=== PATIENT | female | born 1965 | race Caucasian/White ===

== ENCOUNTER → 2018-03-27 | Outpatient (CLI) | payer OTHER ==
[2018-03-27 07:36] LABS: HCT 44.5 % (34.0-46.0); HGB 14.6 gm/dL (11.4-16.0); MCHC 32.9 g/dL (31.0-37.0); MCV 97.2 fL (80.0-100.0); Mean Platelet Volume 6.9; Platelet Count 276 k/uL (150-450); RBC 4.57 m/uL (3.80-5.40); RDW 12.9 % (11.5-15.5); WBC 9.5 k/uL (3.8-10.6)
[2018-03-27 08:05] LABS: T4, Free (Free Thyroxine) 1.01 ng/dL (0.78-2.19)
--- NOTE | 2018-03-27 08:49 | BD ---
EXAMINATION TYPE: Axial Bone Density DATE OF EXAM: 03/27/2018 COMPARISON: NONE CLINICAL HISTORY: 53 YR OLD FEMALE....ICD10 CODE: Z13.820 BONE DENSITY SCREEN Height: 66.3 Weight: 124 FRAX RISK QUESTIONS: Current Tobacco Use: YES RISK FACTORS HISTORY OF: Active: YES Postmenopausal woman: YES AT AGE 50 MEDICATIONS: Additional Medications: NOTHING TO NOTE Additional History: NOTHING TO NOTE EXAM MEASUREMENTS: Bone mineral densitometry was performed using the [employer] System. Bone mineral density as measured about the Lumbar spine is: ----- L1-L4(G/cm2): 1.061 T Score Values are as follows: ----- L1: -1.1 ----- L2: -1.2 ----- L3: -1.3 ----- L4: -0.6 ----- L1-L4: -1.0 Bone mineral density FIRST BONE DENSITY TEST....BASELINE STUDY Bone mineral density about the R hip (g/cm2): 0.861 Bone mineral density about the L hip (g/cm2): 0.865 T Score values are as follows: -----R Neck: -2.0 -----L Neck: -2.0 -----R Total: -1.2 -----L Total: -1.1 Bone mineral density BASELINE STUDY FRAX%s: THERE IS A 7.3% CHANCE FOR A MAJOR OSTEOPOROTIC FX AND A 1.7% FOR HIP ......PROBABILITY OF FX IN 10 YRS TIME IMPRESSION: Osteopenia about the lumbar spine and bilateral femora. NOTE: T-SCORE=SD OF THE YOUNG ADULT MEAN.
[2018-03-27 12:29] LABS: Hemoglobin A1C 5.5 % (4.0-6.0)
--- NOTE | 2018-03-28 14:37 | MM ---
Reason for exam: screening (asymptomatic). Last mammogram was performed 9 years and 4 months ago. History: Patient is postmenopausal. Family history of breast cancer in aunt. Physical Findings: A clinical breast exam by your physician is recommended on an annual basis and results should be correlated with mammographic findings. MG 3D Screening Mammo W/Cad Bilateral CC, MLO, and XCCL view(s) were taken. Prior study comparison: November 12, 2008, bilateral digital screening mammogram. October 02, 2007, bilateral digital screening mammogram. The breast tissue is heterogeneously dense. This may lower the sensitivity of mammography. There is no discrete abnormality. ASSESSMENT: Negative, BI-RAD 1 RECOMMENDATION: Routine screening mammogram of both breasts in 1 year.
== END | disposition home or self-care (01) ==
LOC: RADMAMWWP 06:36
PROVIDERS: ATTEND Obstetrics & Gynecology
DX: Z12.31 Encounter for screening mammogram for malignant neoplasm of breast (principal); M85.851 Other specified disorders of bone density and structure, right thigh; M85.852 Other specified disorders of bone density and structure, left thigh; M85.88 Other specified disorders of bone density and structure, other site; Z13.220 Encounter for screening for lipoid disorders; Z13.1 Encounter for screening for diabetes mellitus
CPT/HCPCS: 77063; 77067; 77080; 80061; 82947; 83036; 84439; 84443; 84479; 85027

== ENCOUNTER → 2019-03-30 | Outpatient (CLI) | payer OTHER ==
--- NOTE | 2019-03-30 10:43 | MM ---
Reason for exam: screening (asymptomatic). Last mammogram was performed 1 year ago. History: Patient is postmenopausal. Family history of breast cancer in aunt. Physical Findings: A clinical breast exam by your physician is recommended on an annual basis and results should be correlated with mammographic findings. MG 3D Screening Mammo W/Cad Bilateral CC and MLO view(s) were taken. XCCL view(s) were taken of the left breast. Prior study comparison: March 27, 2018, bilateral MG 3d screening mammo w/cad. November 12, 2008, bilateral digital screening mammogram. The breast tissue is heterogeneously dense. This may lower the sensitivity of mammography. No suspicious abnormality. No significant changes when compared with prior studies. ASSESSMENT: Negative, BI-RAD 1 RECOMMENDATION: Routine screening mammogram of both breasts in 1 year.
== END | disposition home or self-care (01) ==
LOC: RADMAMWWP 07:26
PROVIDERS: ATTEND Obstetrics & Gynecology
DX: Z12.31 Encounter for screening mammogram for malignant neoplasm of breast (principal); Z80.3 Family history of malignant neoplasm of breast
CPT/HCPCS: 77063; 77067

== ENCOUNTER → 2019-09-17 | Outpatient (CLI) | payer OTHER ==
--- NOTE | 2019-09-18 11:00 | ECHOF ---
Referral Reason:R01.1 Cardiac Murmur MEASUREMENTS -------- HEIGHT: 170.2 cm WEIGHT: 61.7 kg BP: RVIDd: 2.5 cm (< 3.3) IVSd: 0.9 cm (0.6 - 1.1) LVIDd: 3.2 cm (3.9 - 5.3) LVPWd: 1.1 cm (0.6 - 1.1) IVSs: 1.7 cm LVIDs: 1.6 cm LVPWs: 1.8 cm LAESV Index (A-L): 24.08 ml/m Ao Diam: 2.7 cm (2.0 - 3.7) AV Cusp: 1.5 cm (1.5 - 2.6) LA Diam: 3.2 cm (2.7 - 3.8) MV EXCURSION: 14.631 mm (> 18.000) MV EF SLOPE: 128 mm/s (70 - 150) EPSS: 0.4 cm MV E Dedrick: 0.84 m/s MV DecT: 187 ms MV A Dedrick: 1.08 m/s MV E/A Ratio: 0.78 AV maxP.45 mmHg AV meanP.91 mmHg AR PHT: 536 ms RAP: 5.00 mmHg RVSP: 40.22 mmHg FINDINGS -------- Sinus rhythm. This was a technically good study. The left ventricular size is normal. Left ventricular wall thickness is normal. Overall left vent ricular systolic function is normal with, an EF between 55 - 60 %. Sigmoid shaped septum with focal hypertrophy of the basal septum. The remaining wall thickness is normal. The right ventricle is normal in size. The left atrial size is normal. Normal LA size by volume 22+/-6 ml/m2. The right atrial size is normal. The aortic valve is trileaflet and appears structurally normal. There is mild aortic regurgitation. Peak/mean gradient across the Aortic Valve is 37.45mmHg / 20.91mmHg. There is a gradient on the Ao rtic valve opening but valve is opening normally. The mitral valve is normal. Mild mitral regurgitation is present. The tricuspid valve appears structurally normal. Mild tricuspid regurgitation present. There is m ild pulmonary hypertension. The right ventricular systolic pressure, as measured by Doppler, is 40. 22mmHg. There is no pulmonic regurgitation present. The aortic root size is normal. Normal inferior vena cava with normal inspiratory collapse consistent with estimated right atrial pre ssure of 5 mmHg. There is no pericardial effusion. CONCLUSIONS -------- 1. Sinus rhythm. 2. This was a technically good study. 3. The left ventricular size is normal. 4. Left ventricular wall thickness is normal. 5. Overall left ventricular systolic function is normal with, an EF between 55 - 60 %. 6. Sigmoid shaped septum with focal hypertrophy of the basal septum. The remaining wall thickness is normal. 7. The right ventricle is normal in size. 8. The left atrial size is normal. 9. Normal LA size by volume 22+/-6 ml/m2. 10. The right atrial size is normal. 11. There is mild aortic regurgitation. There is a gradient on the Aortic valve opening but valve is opening normally. 12. Peak/mean gradient across the Aortic Valve is 37.45mmHg / 20.91mmHg. 13. The mitral valve is normal. 14. Mild mitral regurgitation is present. 15. The tricuspid valve appears structurally normal. 16. Mild tricuspid regurgitation present. 17. There is mild pulmonary hypertension. 18. The right ventricular systolic pressure, as measured by Doppler, is 40.22mmHg. 19. There is no pulmonic regurgitation present. 20. The aortic root size is normal. 21. Normal inferior vena cava with normal inspiratory collapse consistent with estimated right atrial pressure of 5 mmHg. 22. There is no pericardial effusion. BULB GRADER: Laura Montes CAMRYN
== END | disposition home or self-care (01) ==
LOC: RADECHMAIN 11:57
PROVIDERS: ATTEND Family Medicine
DX: I08.3 Combined rheumatic disorders of mitral, aortic and tricuspid valves (principal); I27.20 Pulmonary hypertension, unspecified
CPT/HCPCS: 93306

== ENCOUNTER → 2022-06-14 | Outpatient (CLI) | payer OTHER ==
--- NOTE | 2022-06-14 08:31 | MM ---
Reason for Exam: Screening (asymptomatic). Last mammogram was performed 3 year(s) and 3 month(s) ago. Patient History: Menarche at age 13. First Full-Term at age 22. Postmenopausal. Maternal aunt had breast cancer. Risk Values: Lucy 5 year model risk: 1.1%. NCI Lifetime model risk: 6.2%. Prior Study Comparison: 11/12/2008 Bilateral Screening Mammogram, [facility]. 03/27/2018 Bilateral Screening Mammogram, [facility]. 03/30/2019 Bilateral Screening Mammogram, [facility]. Tissue Density: The breast tissue is heterogeneously dense. This may lower the sensitivity of mammography. Findings: Analyzed By CAD. There is no suspicious group of microcalcifications or new suspicious mass in either breast. Overall Assessment: Negative, BI-RAD 1 Management: Screening Mammogram of both breasts in 1 year. A clinical breast exam by your physician is recommended on an annual basis and results should be correlated with mammographic findings. [facility] will attempt to contact patient to return for supplemental views and ultrasound if indicated. Electronically signed and approved by: Carroll Koenig DO
== END | disposition home or self-care (01) ==
LOC: RADMAMWWP 07:07
PROVIDERS: ATTEND Family Medicine
DX: Z12.31 Encounter for screening mammogram for malignant neoplasm of breast (principal); Z78.0 Asymptomatic menopausal state; Z80.3 Family history of malignant neoplasm of breast
CPT/HCPCS: 77063; 77067